=== PATIENT | female | born 1985 | race Caucasian/White ===

== ENCOUNTER 2020-08-27 16:54 | Emergency (ER) | payer OTHER ==
[~2020-08-27 16:54] MED LIST: ZOFRAN ODT 4 MG4 MG PO
[2020-08-27 19:42] LABS: HEMOGLOBIN 12.9 gm/dl (12.3-15.3); RED BLOOD COUNT 4.15 M/UL (4.00-5.10); WHITE BLOOD COUNT 7.8 K/UL (4.5-11.0)
[2020-08-27 20:00] LABS: BUN/CREATININE RATIO 15 (0-10)
[2020-08-27] MEDS ORDERED: REGLAN10 MG PO (20:19)
[2020-08-27] MEDS ORDERED: BENTYL 20MG TAB20 MG PO (20:19)
[2020-08-30 22:11] LABS: CHLAMYDIA TRACHOMATIS, NAA Positive (Negative); NEISSERIA GONORRHOEAE, NAA Negative (Negative)
== END 2020-08-27 20:30 | disposition home or self-care (01) ==
LOC: ER1 16:54
PROVIDERS: Family Medicine Adolescent Medicine; Physician Assistant
DX: O20.9 Hemorrhage in early pregnancy, unspecified (principal); Z88.0 Allergy status to penicillin; Z88.1 Allergy status to other antibiotic agents
CPT/HCPCS: 80053; 81001; 84702; 84703; 85025; 96374; 99284; J2765